=== PATIENT | female | born 2000 | race Caucasian/White ===

== ENCOUNTER 2021-03-12 05:23 | Outpatient (CLI) | payer SELFPAY ==
[~2021-03-12] VITALS: Ht 157.5 cm; Wt 74.5 kg
[2021-03-12] MEDS ORDERED: PREN-8 PO (05:56)
[2021-03-12 06:07] LABS: BILIRUBIN,URINE NEGATIVE (NEGATIVE); CLARITY,URINE CLEAR; COLOR,URINE YELLOW; GLUCOSE, URINE (UA) NEGATIVE (NEGATIVE); KETONES,URINE NEGATIVE (NEGATIVE); LEUKOCYTE ESTERASE ,URINE NEGATIVE (NEGATIVE); NITRITE,URINE NEGATIVE (NEGATIVE); PROTEIN,URINE NEGATIVE (NEGATIVE)
[2021-03-12 06:08] VITALS: BP 116/77
[2021-03-12 06:12] VITALS: BP 116/77
[2021-03-12 06:23] LABS: RBC,URINE 0-2 /HPF
[2021-03-12 06:24] LABS: BACTERIA,URINE FEW /HPF; HYALINE CASTS, URINE 0-2 /LPF; SQUAMOUS EPITHELIAL CELL,UR 0-2 /HPF; YEAST,URINE FEW /HPF
[2021-03-12] MEDS ORDERED: D5 LR IV SOLUTION 1,000 ML IV SCH (09:30)
[2021-03-12] MEDS ORDERED: MINERAL OIL CONCENTRATE 99.9% 15 ML UDC TOP PRN (09:30)
--- NOTE | 2021-03-13 08:26 | Physician Query-Final Dx ---
TERRY03/13/21 0826: Clinic Account Progress/Dx Physician Query: Please give diagnosis Please include # weeks gestation Date of Service Mar 12, 2021 at 05:23 CHINYERE STEVENS DO 03/14/21 0932: Clinic Account Progress/Dx DIAGNOSIS: Diagnosis 37w4d GA contractions, not in active labor TERRY,MarMar 13, 2021 08:26 CHINYERE STEVENS DO Mar 14, 2021 09:32
== END 2021-03-12 08:56 | disposition home or self-care (01) ==
LOC: WSo 05:23 → LDRP 05:25 → WSo 08:56
PROVIDERS: ATTEND Family Medicine
DX: O62.9 Abnormality of forces of labor, unspecified (principal); Z3A.37 37 weeks gestation of pregnancy
CPT/HCPCS: 81000; 87088

== ENCOUNTER 2021-03-19 03:19 | Inpatient (IN) | payer OTHER ==
[~2021-03-19] VITALS: Ht 157.5 cm; Wt 74.6 kg
[2021-03-19] VITALS (19 sets, daily range): BP systolic 97–140; BP diastolic 57–113
[~2021-03-19 03:19] MED LIST: PREN-8 PO
[2021-03-19] MEDS ORDERED: D5 LR IV SOLUTION 1,000 ML IV ONE (03:31)
[2021-03-19] MEDS ORDERED: D5 LR IV SOLUTION 1,000 ML IV SCH (03:45)
[2021-03-19] MEDS ORDERED: MINERAL OIL CONCENTRATE 99.9% 15 ML UDC TOP PRN (03:45)
[2021-03-19] MEDS ORDERED: fentaNYL INJ 100 MCG/2 ML AMP ONE (03:52)
[2021-03-19] MEDS: fentaNYL INJ 100 MCG/2 ML AMP IVP PRN ×4 (03:54→09:19)
[2021-03-19 03:56] LABS: BASOPHILS % (AUTO) 0 % (0-10); EOSINOPHILS # (AUTO) 0.4 10^3/uL (0.0-0.3); EOSINOPHILS % (AUTO) 3 % (0-10); HEMATOCRIT 35 % (35-52); HEMOGLOBIN 11.3 g/dL (11.5-16.0); LYMPHOCYTES # (AUTO) 2.3 10^3/uL (1.0-4.0); LYMPHOCYTES % (AUTO) 19 % (12-44); MEAN CORPUSCULAR HEMOGLOBIN 27 pg (25-34); MEAN CORPUSCULAR HGB CONC 33 g/dL (32-36); MEAN CORPUSCULAR VOLUME 82 fL (80-99); MEAN PLATELET VOLUME 10.3 fL (9.0-12.2); MONOCYTES # (AUTO) 0.8 10^3/uL (0.0-1.0); MONOCYTES % (AUTO) 6 % (0-12); NEUTROPHILS # (AUTO) 8.8 10^3/uL (1.8-7.8); NEUTROPHILS % (AUTO) 71 % (42-75); PLATELET COUNT 305 10^3/uL (130-400); WHITE BLOOD COUNT 12.5 10^3/uL (4.3-11.0)
[2021-03-19] MEDS ORDERED: CATHETER FLUSH 10 ML SYR IV SCH (06:00)
[2021-03-19] MEDS ORDERED: LIDOCAINE/EPI 2% 1:200,00 (XYLOCAINE) 10 ML VIAL ONE (07:13)
[2021-03-19] MEDS ORDERED: OXYTOCIN PRE-MIX DRIP 500 ML IV ONE (07:13)
--- NOTE | 2021-03-19 07:22 | History & Physical-OB ---
OB - Chief Complaint & HPI Date/Time Date of Admission: Date of Admission: Mar 19, 2021 at 03:47 Date seen by a Provider: Mar 19, 2021 Time Seen by a Provider: 07:21 Chief Complaint/History OB-Reason for Admission/Chief: Onset of Labor Hx : 1 Hx Para: 0 Expected Date of Delivery: Mar 29, 2021 Gestational Age in Weeks: 38 Gestational Age in Days: 4 History of Labs O+, antibody neg, RNI. HIV/HepB/RPR NR. GBS neg. Other Pt presented to labor and delivery after spontaneous rupture of membranes at home around 10 pm, having regular contractions. Allergies and Home Medications Allergies Coded Allergies: No Known Drug Allergies (Unverified , 03/12/21) Patient Home Medication List Home Medication List Reviewed: Yes Vit W-Ca,Fe,FA(<1 mg) ( Formula) 1 Each Tablet, 1 EACH PO DAILY, (Reported) Entered as Reported by: SHAY CEDILLO on 03/12/21 0556 Last Action: Reviewed OB - History Hx of Present Ultrasounds: Normal mid trimester US Obstetrical Complications: None Medical Complications: None Information Induced Hypertension: No Maternal Gestational Diabetes: No Hemorrhage: No Obstetrical History Hx : 1 Hx Para: 0 Patient Past Medical History PMHx: denies SurgHx: Denies Social History/Family History Alcohol Use: Denies Use Recreational Drug Use: No Smoking Cessation: Never smoker 2nd Hand Smoke Exposure: No Immunizations Influenza Vaccine Up-to-Date: No; Not Current Tetanus Booster (TDap): Less than 5yrs (01/13/21) Rubella: not immune RPR/VDRL: Negative GBS Status: Negative HBsAG: Negative OB - Admission Exam Physical Exam Vitals: Vital Signs 03/19/21 04:40 Temp 36.4 Pulse 87 Resp 18 B/P (MAP) 115/69 (84) Pulse Ox 99 O2 Delivery Room Air HEENT: NCAT Abdomen: Non tender Extremities: Normal Cervical Dilatation: 9cm Effacement: 100% Station: 0 Membranes: Ruptured Amniotic Fluid: Clear Labs Laboratory Tests Test 03/19/21 03:30 Range/Units White Blood Count 12.5 H 4.3-11.0 10^3/uL Red Blood Count 4.23 3.80-5.11 10^6/uL Hemoglobin 11.3 L 11.5-16.0 g/dL Hematocrit 35 35-52 % Mean Corpuscular Volume 82 80-99 fL Mean Corpuscular Hemoglobin 27 25-34 pg Mean Corpuscular Hemoglobin Concent 33 32-36 g/dL Red Cell Distribution Width 14.9 H 10.0-14.5 % Platelet Count 305 130-400 10^3/uL Mean Platelet Volume 10.3 9.0-12.2 fL Immature Granulocyte % (Auto) 1 % Neutrophils (%) (Auto) 71 42-75 % Lymphocytes (%) (Auto) 19 12-44 % Monocytes (%) (Auto) 6 0-12 % Eosinophils (%) (Auto) 3 0-10 % Basophils (%) (Auto) 0 0-10 % Neutrophils # (Auto) 8.8 H 1.8-7.8 10^3/uL Lymphocytes # (Auto) 2.3 1.0-4.0 10^3/uL Monocytes # (Auto) 0.8 0.0-1.0 10^3/uL Eosinophils # (Auto) 0.4 H 0.0-0.3 10^3/uL Basophils # (Auto) 0.0 0.0-0.1 10^3/uL Immature Granulocyte # (Auto) 0.1 0.0-0.1 10^3/uL OB - Assessment/Plan/Diagnosis Assessment Admission Dx Term intrauterine at 38 weeks gestation Active labor with spontaneous rupture of membranes GBS negative Rubella non-immune Blood type O+ Not vaccinated for flu or COVID Admission Status: Inpatient Order (span 2 midnights) Reason for Inpatient Admission: labor, delivery and course Plan Plan: Expectant Management ALYSE EDWARDS MD Mar 19, 2021 07:22
--- NOTE | 2021-03-19 10:04 | OB Labor & Delivery Record ---
Vag Delivery Note Vag Delivery Note Date of Delivery: 03/19/21 Preoperative Diagnosis: Marcela Sanz is a (20 /Para 1 / 0, Gestational Age (wks)38with 4 days Postoperative Diagnosis: Same Surgeon: ALYSE EDWARDS Anesthesia: None Delivery Type: Findings: Viable male , apgars 8/9, weight 8#2 Lacerations: Third degree perineal Intact placenta with 3 vessel cord. No nuchal cord, body cord or shoulder dystocia Estimated Blood Loss: 350 ml Complications: None Condition: Stable Description of Procedure: The patient is a 20 year old female who presented in active labor. She was admitted and informed consent was obtained. Her labor course was remarkable for bradycardia with moderate variability and accelerations present when pushing. She progressed to complete dilatation and began to push. She was then set up for delivery. The infant's head was delivered atraumatically in the OA position. The shoulders and remainder of the 's body were then delivered without difficulty. Upon delivery, the infant was placed on maternal abdomen. The cord was doubly clamped and cut and the remained vigorous and remained on maternal abdomen for transition. An intact placenta with 3- vessel cord delivered via Doris and there was found to be minimal bleeding.~ Vigorous fundal massage was performed and the fundus was found to be firm. IV oxytocin was given. Examination of the vagina and perineum revealed a third degree perineal laceration repaired in the usual fashion, the third degree with 2-0 vicryl end to end and the second degree with 3-0 vicryl rapide suture in the usual fashion. Following the repair, sponge, instrument and needle counts were correct. Mom and baby were both in stable condition in the labor suite. Vitals - Labs Vital Signs - I&O Vital Signs Date Time Temp Pulse Resp B/P (MAP) Pulse Ox O2 Delivery O2 Flow Rate FiO2 03/19/21 07:01 92 18 119/71 (87) Room Air 03/19/21 06:30 36.5 96 18 117/76 (90) Room Air 03/19/21 06:03 111 18 140/113 (122) Room Air 03/19/21 05:01 91 18 129/74 (92) Room Air 03/19/21 04:40 36.4 87 18 115/69 (84) 99 Room Air 03/19/21 03:20 36.2 90 18 119/81 (94) 99 Room Air 03/19/21 03:20 36.2 90 18 99 Room Air Labs Laboratory Tests 03/19/21 03:30: White Blood Count 12.5H, Red Blood Count 4.23, Hemoglobin 11.3L, Hematocrit 35, Mean Corpuscular Volume 82, Mean Corpuscular Hemoglobin 27, Mean Corpuscular Hemoglobin Concent 33, Red Cell Distribution Width 14.9H, Platelet Count 305, Mean Platelet Volume 10.3, Immature Granulocyte % (Auto) 1, Neutrophils (%) (Auto) 71, Lymphocytes (%) (Auto) 19, Monocytes (%) (Auto) 6, Eosinophils (%) (Auto) 3, Basophils (%) (Auto) 0, Neutrophils # (Auto) 8.8H, Lymphocytes # (Auto) 2.3, Monocytes # (Auto) 0.8, Eosinophils # (Auto) 0.4H, Basophils # (Auto) 0.0, Immature Granulocyte # (Auto) 0.1 ALYSE EDWARDS MD Mar 19, 2021 10:04
[2021-03-19] MEDS ORDERED: DIBUCAINE 1% OINTMENT 30 GM TUBE TOP PRN (10:30)
[2021-03-19] MEDS ORDERED: OXYTOCIN PRE-MIX DRIP 500 ML IV SCH (10:30)
[2021-03-19] MEDS ORDERED: WITCH HAZEL(TUCKS) 40 EA JAR TOP PRN (10:30)
[2021-03-19] MEDS ORDERED: BENZOCAINE/MENTHOL (DERMOPLAST) 56 ML CAN TP PRN (10:30)
[2021-03-19] MEDS ORDERED: TETANUS,DIPTH,PERTUSS P/F (BOOSTRIX) 0.5 ML VIAL IM ONE (10:30)
[2021-03-19] MEDS ORDERED: FLU QUADRIvalent (3YOA+) 60 mcg/0.5 ml 2021-22(AFLURIA) IM ONE (10:30)
[2021-03-19] MEDS ORDERED: ceFAZolin INJECTION 1,000 MG VIAL IV ONE (12:00)
[2021-03-19] MEDS: MEASLES,MUMPS,RUBELLA 1 EA INJ SQ ONE (12:26)
[2021-03-19] MEDS ORDERED: ceFAZolin INJECTION 2,000 MG ONE (12:28)
[2021-03-19] MEDS: CATHETER FLUSH 10 ML SYR IV SCH (12:35)
[2021-03-19] MEDS: IBUPROFEN 600 MG (MOTRIN) TAB PO SCH ×2 (16:51→21:42)
[2021-03-19] MEDS: DOCUSATE SODIUM 100 MG (COLACE) CAP PO SCH (21:42)
[2021-03-20 01:35] VITALS: BP 104/65
[2021-03-20] MEDS: IBUPROFEN 600 MG (MOTRIN) TAB PO SCH ×2 (04:17→10:29)
[2021-03-20 05:40] VITALS: BP 115/66
[2021-03-20 06:30] LABS: BASOPHILS % (AUTO) 0 % (0-10); EOSINOPHILS # (AUTO) 0.1 10^3/uL (0.0-0.3); EOSINOPHILS % (AUTO) 1 % (0-10); HEMATOCRIT 29 % (35-52); HEMOGLOBIN 9.6 g/dL (11.5-16.0); LYMPHOCYTES # (AUTO) 2.1 10^3/uL (1.0-4.0); LYMPHOCYTES % (AUTO) 15 % (12-44); MEAN CORPUSCULAR HEMOGLOBIN 27 pg (25-34); MEAN CORPUSCULAR HGB CONC 33 g/dL (32-36); MEAN CORPUSCULAR VOLUME 83 fL (80-99); MEAN PLATELET VOLUME 10.1 fL (9.0-12.2); MONOCYTES # (AUTO) 0.9 10^3/uL (0.0-1.0); MONOCYTES % (AUTO) 6 % (0-12); NEUTROPHILS # (AUTO) 11.1 10^3/uL (1.8-7.8); NEUTROPHILS % (AUTO) 77 % (42-75); PLATELET COUNT 257 10^3/uL (130-400); WHITE BLOOD COUNT 14.4 10^3/uL (4.3-11.0)
[2021-03-20] MEDS: CATHETER FLUSH 10 ML SYR IV SCH (07:00)
[2021-03-20] MEDS ORDERED: PRENATAL VITAMIN 1 EA TAB PO SCH (07:00)
--- NOTE | 2021-03-20 07:31 | Discharge Summary ---
Diagnosis/Chief Complaint Date of Admission Mar 19, 2021 at 03:47 Date of Discharge March 20, 2021 Admission Diagnosis Admission Diagnosis 1. Intrauterine at 38 weeks 4 days gestation Discharge Diagnosis 1. Intrauterine at 38 weeks 4 days gestation Chief Complaint/HPI Chief Complaint/HPI 20-year-old 1 now term 1 L1 who initially presented to labor and delivery during the iron assorter of March 19, 2021 in active labor. She was noted to be at 38 weeks 4 days gestation. Her care was obtained through Dr. Up at [facility] and was essentially unremarkable. Her GBS status at 36 weeks was negative. Discharge Summary-OBS Procedures 1. Spontaneous vaginal delivery 2. Repair of third-degree perineal laceration Discharge Physical Examination Allergies: Coded Allergies: No Known Drug Allergies (Unverified , 03/12/21) Vitals & I&Os Vital Sign - Last 12Hours Date Time Temp Pulse Resp B/P (MAP) Pulse Ox O2 Delivery O2 Flow Rate FiO2 03/20/21 05:40 36.2 86 18 115/66 (82) 99 Room Air General Appearance: No Acute Distress Respiratory: Clear to Auscultation Cardiovascular: Regular Rate Abdominal: Soft (with uterus firm) Hospital Course Was the Problem List Reviewed?: Yes In the iron assorter of March 19, 2021 she continued in labor. Ultimately she did go on to completion and deliver over a third-degree perineal laceration and a term viable large for gestational age male. received Apgars of 8 at 1 minute and 9 at 5 minutes. Weight was noted to be 8 lbs. 2 oz. following delivery she underwent routine care orders. She had no complications during the remainder of hospital stay. She had hemoglobin in the morning of March 20 9.6 compared to 11.3 on admission. She did not have any lightheadedness upon standing. She tolerated regular diet. She was eager for dismissal during the late morning of March 20, 2021. She will follow-up with Dr. Up in 6 weeks. Labs Laboratory Tests 03/20/21 06:03: White Blood Count 14.4H, Red Blood Count 3.53L, Hemoglobin 9.6L, Hematocrit 29L, Mean Corpuscular Volume 83, Mean Corpuscular Hemoglobin 27, Mean Corpuscular Hemoglobin Concent 33, Red Cell Distribution Width 15.4H, Platelet Count 257, Mean Platelet Volume 10.1, Immature Granulocyte % (Auto) 1, Neutrophils (%) (Auto) 77H, Lymphocytes (%) (Auto) 15, Monocytes (%) (Auto) 6, Eosinophils (%) (Auto) 1, Basophils (%) (Auto) 0, Neutrophils # (Auto) 11.1H, Lymphocytes # (Auto) 2.1, Monocytes # (Auto) 0.9, Eosinophils # (Auto) 0.1, Basophils # (Auto) 0.0, Immature Granulocyte # (Auto) 0.1 Discharge Instructions to patient/family Please see electronic discharge instructions given to patient. Discharge Medications Reviewed and agree with Discharge Medication list on patient's Discharge Instruction sheet KYLE ROMAN MD Mar 20, 2021 07:31
[2021-03-20] MEDS ORDERED: IBUP-844 PO (07:33)
[2021-03-20] MEDS ORDERED: DOCU100C37 PO (07:33)
--- NOTE | 2021-03-20 07:34 | Discharge Inst-Women's Service ---
Discharge Inst-Women's Serv Depart Medication/Instructions New, Converted or Re-Newed RX: Transmitted to Pharmacy ([facility]) Problems Reviewed?: Yes Consults/Follow Up Additional Follow Up: Yes (Dr. Up in 6 weeks) Activity Activity: Activity as Tolerated Driving Instructions: No Driving for 1 Week Nothing Inside Vagina: No [place] (for 6 weeks) Diet Discharge Diet: Regular Diet Return to The Hospital For: as below Symptoms to Report to : Bleeding Excessive, Fever Over 101 Degrees F, Vaginal Discharge Foul For Any Problems or Questions: Contact Your Physician KYLE ROMAN MD Mar 20, 2021 07:34
[2021-03-20 08:57] VITALS: BP 93/55
[2021-03-20] MEDS: DOCUSATE SODIUM 100 MG (COLACE) CAP PO SCH (09:02)
[2021-03-20] MEDS: MEASLES,MUMPS,RUBELLA 1 EA INJ SQ ONE (09:08)
== END 2021-03-20 15:25 | disposition home or self-care (01) | DRG 768 ==
LOC: LDRP 03:19 → WSo 03:19 → LDRP 03:47
PROVIDERS: ADMIT Family Medicine; ATTEND Family Medicine
PROC: 10E0XZZ Delivery of Products of Conception, External Approach (ICD-10-PCS; principal; 2021-03-19)
PROC: 0DQR0ZZ Repair Anal Sphincter, Open Approach (ICD-10-PCS; 2021-03-19)
DX: O80 Encounter for full-term uncomplicated delivery (principal); Z37.0 Single live birth; Z3A.38 38 weeks gestation of pregnancy; O70.20 Third degree perineal laceration during delivery, unspecified
CPT/HCPCS: 36415; 85025; 86780; 86850; 86900; 86901; 99212